=== PATIENT | male | born 1950 | race Caucasian/White ===

== ENCOUNTER 2024-12-31 11:15 | Day surgery (SDC) | payer MEDICARE, OTHER ==
[2024-12-26 08:53] VITALS: BP 135/69
[~2024-12-31 11:15] MED LIST: CARVEDILOL6.25 MG PO; IBLOOD GLUCOSE TEST STRIP 1 EA TEST VI PRN; JARDIANCE10 MG PO; LACTATED RINGER'S 1,000 ML IV SCH; LIDOCAINE HCL 1% 5 ML SDV INJ ONE; LISINOPRIL20 MG PO; LOSARTAN POTASS25 MG PO; PRAVACHOL40 MG PO
[2024-12-31 12:25] VITALS: BP 148/89
[2024-12-31] MEDS ORDERED: propofoL 200 MG/20 ML VIAL ONE (12:56)
[2024-12-31] MEDS ORDERED: LIDOCAINE HCL 2% 5 ML SDV ONE ×2 (12:56→12:57)
--- NOTE | 2024-12-31 13:36 | NUR ---
12/31/24 1336 Charlene Upton 1330-PATIENT ARRIVED TO PACU ON 10L MASK NONAROUSABLE LAYING LEFT LATERAL. ABDOMEN SOFT. IVF INFUSING. SR HR 60'S.
[2024-12-31 14:03] VITALS: BP 125/62
--- NOTE | 2025-01-01 09:59 | OR ---
[facility] [address] [place], [place] [address] Signed DATE OF OPERATION: 12/31/2024 SURGEON: Sameer Floyd MD PREOPERATIVE DIAGNOSIS: History of diverticulosis and tubular adenoma of cecum in 2019. POSTOPERATIVE DIAGNOSES: 1. Small polyps x3, two in sigmoid, one in rectosigmoid. 2. Extensive diverticulosis. PROCEDURE: Total colonoscopy to cecum with cold morcellation polypectomy x2 and cold snare polypectomy x1. ANESTHESIA: Intravenous sedation propofol infusion; Keshav Strange CRNA. INDICATION: This 74-year-old white man is a patient of Emerald Borja and well known to me from the past having undergone colonoscopy in 2019 at which time he was found to have a tubular adenoma of the cecum as well as diverticulosis. He had an episode of significant rectal bleeding in September of this year, which has resolved entirely. He is now to undergo surveillance colonoscopy, understand the risk of bleeding, infection, and perforation. FINDINGS: The prep was good. Complete colonoscopy was undertaken of cecum with full intubation of cecum. He had extensive diverticulosis extending from the sigmoid proximally to include the right colon and even the cecum. There were three small polyps, two in the sigmoid, one in the rectosigmoid all were excised. There were no other findings of concern. DESCRIPTION OF PROCEDURE: The patient was brought to the endoscopy suite and placed in lateral decubitus position, given intravenous sedation to the point of slurred speech and nystagmus. Digital rectal examination was normal. Propofol infusional sedation technique was used. An Olympus video colonoscope was passed in the rectum and manipulated throughout the colon ultimately intubating the cecum itself. The ileocecal valve and appendiceal orifice were normal. Scope was withdrawn from that site noting numerous diverticula of the right colon, transverse colon. Withdrawal to the proximal sigmoid showed a small Electronically Signed By: SAMEER FLOYD MD 01/01/25 0959 PATIENT NAME: STEPHANIE MCLAUGHLIN JR OPERATIVE REPORT DATE OF : 48 REPORT #: [id number] PHYSICIAN: SAMEER FLOYD MD PCP: EMERALD BORJA PA-C REPORT IS CONFIDENTIAL AND NOT TO BE RELEASED WITHOUT AUTHORIZATION [facility] [address] [place], [place] [address] Signed adenomatous appearing polyp, which was excised with cold morcellation technique without problem. Further withdrawal showed a somewhat larger polyp in the sigmoid, excised with cold snare technique as well as morcellation extraction. Further withdrawal showed a minimal small polyp of the rectosigmoid, which was excised with cold morcellation technique. Retroflexed view of the rectum was normal except for minimal hemorrhoidal disease. Scope was removed. The patient was taken to the recovery room in good condition. CONCLUDING DIAGNOSES: 1. Extensive diverticulosis. 2. Small polyp x3. PLAN: Recommend repeat colonoscopy in seven years, sooner if symptoms should develop. I would recommend a high-fiber diet or a fiber supplement such as Metamucil. He will return to the ongoing care of LUPE Foster. MD AALIYAH Jamil/GURJIT /[id number] cc: Emerald Bojra PA-C Copies: EMERALD BORJA PA-C ~ Electronically Signed By: SAMEER FLOYD MD 01/01/25 0959 PATIENT NAME: LISSETTESTEPHANIE VENKAT OPERATIVE REPORT DATE OF : 48 REPORT #: [id number] PHYSICIAN: SAMEER FLOYD MD PCP: EMERALD BORJA PA-C REPORT IS CONFIDENTIAL AND NOT TO BE RELEASED WITHOUT AUTHORIZATION
--- NOTE | 2025-01-02 14:10 | PATH ---
[facility] [address] [place], [place] [address] Signed SPECIMEN(S): A SIGMOID POLYP SPECIMEN(S): B SIGMOID POLYP SPECIMEN(S): C RECTOSIGMOID POLYP SPECIMEN SOURCE: A. SIGMOID POLYP B. SIGMOID POLYP C. RECTOSIGMOID POLYP CLINICAL HISTORY: Personal history tubular adenoma near cecum, family history of colon cancer, polyps X3, diverticulosis FINAL PATHOLOGIC DIAGNOSIS: A. Sigmoid colon, polypectomy: - Tubular adenoma. - Negative for high grade dysplasia or malignancy. B. Sigmoid colon, polypectomy: - Tubular adenoma. - Negative for high grade dysplasia or malignancy. C. Rectosigmoid colon, polypectomy: - Hyperplastic polyp. DWS:frank MICROSCOPIC EXAMINATION: Histologic sections of all submitted blocks are examined by light microscopy. These findings, together with the gross examination, support the pathologic diagnosis. GROSS DESCRIPTION: A. The specimen, labeled and designated "Lima, sigmoid polyp," is received in formalin and consists of one elliott soft tissue fragment, 0.2 cm. Entirely submitted in (A1). B. The specimen, labeled and designated "Lima, sigmoid polyp," is received in formalin and consists of one elliott soft tissue fragment, 0.4 cm. Entirely submitted in (B1). C. The specimen, labeled and designated "Lima, rectosigmoid polyp," is received in formalin and consists of three elliott soft tissue fragments, ranging from 0.2-0.3 cm. Entirely submitted in (C1). VB (under the direct supervision of a pathologist) The Gross Description was prepared using a voice recognition system. The report PATIENT NAME: STEPHANIE LIMA JR PATHOLOGY DATE OF : 48 REPORT #: [id number] PHYSICIAN: PAT LANCASTER PCP: ANGELO REGALADO PA-C REPORT IS CONFIDENTIAL AND NOT TO BE RELEASED WITHOUT AUTHORIZATION [facility] [address] [place], [place] [address] Signed was reviewed for accuracy; however, sound-alike word errors, addition and/or deletions may occur. If there is any question about this report, please contact Client Services. PERFORMING LABORATORY: Technical component was performed by [facility], [address] [place] [id number] (CLIA# [id number]). Professional interpretation was performed by [facility], [address] [place] [id number] (CLIA#: [id number]). Diagnostician: Johann Larios MD Pathologist Electronically Signed 01/02/2025 Copies: ~ PATIENT NAME: STEPHANIE LIMA JR PATHOLOGY DATE OF : 48 REPORT #: [id number] PHYSICIAN: PAT LANCASTER PCP: ANGELO REGALADO PA-C REPORT IS CONFIDENTIAL AND NOT TO BE RELEASED WITHOUT AUTHORIZATION
== END 2024-12-31 14:10 | disposition home or self-care (01) ==
LOC: DS 11:15
PROVIDERS: ATTEND Surgery
PROC: 0DBN8ZZ Excision of Sigmoid Colon, Via Natural or Artificial Opening Endoscopic (ICD-10-PCS; principal; 2024-12-31 12:30)
DX: Z12.11 Encounter for screening for malignant neoplasm of colon (principal); D12.5 Benign neoplasm of sigmoid colon; K63.5 Polyp of colon; K57.30 Diverticulosis of large intestine without perforation or abscess without bleeding; I10 Essential (primary) hypertension; E78.5 Hyperlipidemia, unspecified; G47.33 Obstructive sleep apnea (adult) (pediatric); Z79.899 Other long term (current) drug therapy; Z80.0 Family history of malignant neoplasm of digestive organs; Z85.46 Personal history of malignant neoplasm of prostate; Z99.89 Dependence on other enabling machines and devices
CPT/HCPCS: 00811; 88305; J2003; J2704; J7121